=== PATIENT | male | born 1965 | race Caucasian/White ===

== ENCOUNTER 2022-06-21 22:02 | Inpatient (IN) | payer BC ==
[~2022-06-21] VITALS: Ht 177.8 cm; Wt 97.5 kg
[2022-06-21 22:41] LABS: HEMOGLOBIN 15.9 gm/dl (14.0-17.5); RED BLOOD COUNT 5.47 M/UL (4.20-5.50); WHITE BLOOD COUNT 8.8 K/UL (4.5-11.0)
[2022-06-21 23:11] LABS: BUN/CREATININE RATIO 15 (0-10)
[2022-06-22 02:51] LABS: HEMOGLOBIN 15.3 gm/dl (14.0-17.5); RED BLOOD COUNT 5.3 M/UL (4.20-5.50); WHITE BLOOD COUNT 8.5 K/UL (4.5-11.0)
[2022-06-22] MEDS ORDERED: ENTRESTO 24 MG1 EACH PO (07:47)
[2022-06-22] MEDS ORDERED: PLAVIX75 MG PO (07:47)
[2022-06-22] MEDS ORDERED: LIPITOR TAB 2020 MG PO (07:48)
[2022-06-22] MEDS ORDERED: LOPRESSOR 25 MG25 MG PO (07:48)
[2022-06-22] MEDS ORDERED: ASPIRIN CHEWABL81 MG PO (07:52)
[2022-06-22] MEDS ORDERED: NITROSTAT 0.40.4 MG SL (07:52)
[2022-06-22] MEDS ORDERED: PRILOSEC OTC20 MG PO (07:53)
[2022-06-23 02:06] LABS: HEMOGLOBIN 14.5 gm/dl (14.0-17.5); RED BLOOD COUNT 5.06 M/UL (4.20-5.50); WHITE BLOOD COUNT 7.3 K/UL (4.5-11.0)
[2022-06-23 02:28] LABS: BUN/CREATININE RATIO 15 (0-10)
[2022-06-23] MEDS ORDERED: ISOSORBIDE MONO30 MG PO (12:25)
[2022-06-23] MEDS ORDERED: LIPITOR80 MG PO (12:25)
[2022-06-23] MEDS ORDERED: BRILINTA 90 MG90 MG PO (12:25)
== END 2022-06-23 13:52 | disposition home or self-care (01) | DRG 247 ==
LOC: ER1 22:02 → CDU 06-22 01:02 → MED SURG 4 06-22 01:02 → PROG CARE 06-22 19:07
PROVIDERS: Internal Medicine Interventional Cardiology; Physician Assistant; ADMIT Family Medicine
PROC: 027034Z Dilation of Coronary Artery, One Artery with Drug-eluting Intraluminal Device, Percutaneous Approach (ICD-10-PCS; principal; 2022-06-22)
PROC: 4A023N7 Measurement of Cardiac Sampling and Pressure, Left Heart, Percutaneous Approach (ICD-10-PCS; 2022-06-22)
PROC: B2111ZZ Fluoroscopy of Multiple Coronary Arteries using Low Osmolar Contrast (ICD-10-PCS; 2022-06-22)
PROC: B24BZZZ Ultrasonography of Heart with Aorta (ICD-10-PCS; 2022-06-22)
DX: I21.4 Non-ST elevation (NSTEMI) myocardial infarction (principal); N17.9 Acute kidney failure, unspecified; I25.110 Atherosclerotic heart disease of native coronary artery with unstable angina pectoris; I10 Essential (primary) hypertension; E78.5 Hyperlipidemia, unspecified; E78.00 Pure hypercholesterolemia, unspecified; I08.1 Rheumatic disorders of both mitral and tricuspid valves; R73.03 Prediabetes; G47.33 Obstructive sleep apnea (adult) (pediatric); K21.9 Gastro-esophageal reflux disease without esophagitis; Z82.49 Family history of ischemic heart disease and other diseases of the circulatory system; Z87.891 Personal history of nicotine dependence; Z79.01 Long term (current) use of anticoagulants; Z79.82 Long term (current) use of aspirin; Z95.5 Presence of coronary angioplasty implant and graft; I25.2 Old myocardial infarction; Z88.1 Allergy status to other antibiotic agents; Z83.3 Family history of diabetes mellitus
CPT/HCPCS: ECHO; 36415; 71045; 80048; 80053; 80061; 82550; 82553; 83036; 83735; 84484; 85025; 85347; 85610; 85730; 93005; 93306; 96374; 99152; 99153; 99285; C1725; C1769; C1874; C1887; C1894; C9600; J0461; J1644; J2250; J2370; J3010; J3246; Q9967